=== PATIENT | female | born 1995 | race Caucasian/White ===

== ENCOUNTER 2017-10-22 18:28 | Emergency (ER) | payer BC ==
[2017-10-22 18:40] VITALS: BP 126/81
--- NOTE | 2017-10-22 19:43 | ER Document Report ---
HPI - HPI Patient complains to provider of: nose piercing removed Onset: Other - Patient states she noticed that she was developing some pain to her nose piercing and when she tried to remove it she noticed the skin was grown over the back into the nose ring Onset/Duration: Gradual Quality of pain: Sharp Severity: Moderate Pain Level: 4 Associated Symptoms: Other - And going over the internal portion of the nose ring Exacerbated by: Other Relieved by: Denies - Movement of the nose ring Similar symptoms previously: No Recently seen / treated by doctor: No - ROS ROS below otherwise negative: Yes - CONSTITUTIONAL Constitutional: DENIES: Fever, Chills - EENT EENT: DENIES: Sore Throat, Ear Pain, Eye problems Notes: Pain at site of the nose ring. Internal portion of the nose ring is covered with skin and is irritated due to patient trying to remove the ring herself - NEURO Neurology: DENIES: Headache, Weakness, Vision blurred, Dizzinesss / Vertigo - CARDIOVASCULAR Cardiovascular: DENIES: Chest pain - RESPIRATORY Respiratory: DENIES: Trouble Breathing, Coughing - GASTROINTESTINAL Gastrointestinal: DENIES: Abdominal Pain, Black / Bloody Stools - URINARY Urinary: DENIES: Dysuria, Urgency, Frequency - MUSCULOSKELETAL Musculoskeletal: DENIES: Extremity pain - DERM Skin Color: Normal - Skin is grown over the internal portion of the nose ring. Patient is not able to remove the nose ring Past Medical History - General Information source: Patient - Social History Smoking Status: Never Smoker Cigarette use (# per day): No Chew tobacco use (# tins/day): No Smoking Education Provided: No Frequency of alcohol use: None Drug Abuse: None Lives with: Family Family History: Reviewed & Not Pertinent Patient has suicidal ideation: No Patient has homicidal ideation: No - Past Medical History Cardiac Medical History: Reports: None Pulmonary Medical History: Reports: None EENT Medical History: Reports: None Neurological Medical History: Reports: None Endocrine Medical History: Reports: None Renal/ Medical History: Reports: None Malignancy Medical History: Reports: None GI Medical History: Reports: None Musculoskeletal Medical History: Reports None Skin Medical History: Reports None Psychiatric Medical History: Reports: None Traumatic Medical History: Reports: None Infectious Medical History: Reports: None Past Surgical History: Reports: Hx Oral Surgery - Cyst removed from jaw - Immunizations Immunizations up to date: Yes Hx Diphtheria, Pertussis, Tetanus Vaccination: Yes Vertical Provider Document - CONSTITUTIONAL Agree With Documented VS: Yes Exam Limitations: No Limitations General Appearance: WD/WN, No Apparent Distress - INFECTION CONTROL TRAVEL OUTSIDE OF THE [place] IN LAST 30 DAYS: No - HEENT HEENT: Atraumatic Notes: Skin grown over the part of the nose ring that is inside of her nose. There is no redness or inflammation on the outside of her nose. She cannot remove the nose ring herself. - NECK Neck: Normal Inspection - RESPIRATORY Respiratory: Breath Sounds Normal, No Respiratory Distress - CARDIOVASCULAR Cardiovascular: Regular Rate, Regular Rhythm Course - Re-evaluation Re-evalutation: 10/22/17 22:30 Area was cleaned with Betadine. Small amount of lidocaine was injected into these areas surrounding the nose ring. Forceps were used force the nose ring to the inside of the nose. Then to forceps were used to to hold each end of the nose ring and apply pressure to pull them apart and removed the nose ring. Patient tolerated procedure fair after the lidocaine was injected. She did get nauseated while the procedure was being done and it needed to be stopped long enough for her to cough and spit a little bit at the she was able to tolerate the nose ring being removed. The site was cleaned with soap and water and then bacitracin applied inside and outside of the site. Patient is instructed to clean the site with alcohol today and tomorrow and then soap and water for the next couple days. Patient was instructed to apply bacitracin to the site. Patient verbalized understanding of instruction and agreement with treatment plan. - Vital Signs Vital signs: Temp Pulse Resp BP Pulse Ox 99.2 F 70 16 126/81 H 100 10/22/17 18:39 10/22/17 18:39 10/22/17 18:39 10/22/17 18:39 10/22/17 18:39 Discharge - Discharge Clinical Impression: nose piercing removed Condition: Stable Disposition: HOME, SELF-CARE Instructions: Family Physicians / Practices Additional Instructions: Seen today for a nose piercing that was infected and the skin grow over the back of the nose piercing. This piercing was removed. These clean area with alcohol today and tomorrow and then after that with soap and water 1-2 times a day. Apply bacitracin to the outside of the nose for the next 1-2 days you can also place inside the nose with a Q-tip. Acetaminophen Acetaminophen may be taken for pain relief or fever control. It's much safer than aspirin, offering a wider range of "safe" dosages. It is safe during . Some brand names are Tylenol, Panadol, Datril, Anacin 3, Tempra, and Liquiprin. Acetaminophen can be repeated every four hours. The following are maximum recommended dosages: WEIGHT Dose Drops Elixir Chewable( 80mg) (LBS.) drprs=droppers tsp=teaspoon 6 40 mg .4 ml (1/2) 6-11 80 mg .8 ml (full) 1/2 tsp 1 tab 12-16 120 mg 1 1/2 drprs 3/4 tsp 1 1/2 tabs 17-23 160 mg 2 drprs 1 tsp 2 tabs 24-30 240 mg 3 drprs 1 1/2 tsp 3 tabs 30-35 320 mg 2 tsp 4 tabs 36-41 360 mg 2 1/4 tsp 4 1 /2 tabs 42-47 400 mg 2 1/2 tsp 5 tabs 48-53 480 mg 3 tsp 6 tabs 54-59 520 mg 3 1/4 tsp 6 1 /2 tabs 60-64 560 mg 3 1/2 tsp 7 tabs 65-70 600 mg 3 3/4 tsp 7 1 /2 tabs 71-76 640 mg 4 tsp 8 tabs 77-82 720 mg 4 1/2 tsp 9 tabs 83-88 800 mg 5 tsp 10 tabs >89 pounds or adults 650 mg to 900 mg Acetaminophen can be repeated every four hours. Maximum daily dose not to exceed 4000 mg. These maximum recommended dosages are slightly higher than the dosages written on the product container, but these dosages are very safe and well below the toxic dosage for acetaminophen. FOLLOW-UP CARE: If you have been referred to a physician for follow-up care, call the physician s office for an appointment as you were instructed or within the next two days. If you experience worsening or a significant change in your symptoms, notify the physician immediately or return to the Emergency Department at any time for re-evaluation.
== END 2017-10-22 19:44 | disposition home or self-care (01) ==
LOC: ER 18:28
DX: M79.5 Residual foreign body in soft tissue (principal); R11.0 Nausea
CPT/HCPCS: 99282